=== PATIENT | male | born 1970 | race American Indian/Alaskan Native ===

== ENCOUNTER 2017-04-11 09:30 | Emergency (ER) | payer BC ==
--- NOTE | 2017-04-11 14:22 | Emergency Department Report ---
Upper Extremity - HPI Chief Complaint: Extremity Injury, Upper Stated Complaint: RIGHT SHOULDER ACHE Time Seen by Provider: 04/11/17 13:35 Upper Extremity: Right Shoulder (pain and shoulder joint without any injury.) Occurred When: 4 Days Mechanism: Unsure, Other (she reports that he thinks he slept the wrong way and the shoulder and he started having pain when he woke up 4 days ago) Severity: moderate (4/10. Achy and worse with movement. [id number] pain medication does not help.) Symptoms: Yes Pain with Movement (right shoulder), Yes Limited Range of Movement (right shoulder), No Deformity, No Numbness, No Weakness, No Swelling, No Bruising/Ecchymosis, No Laceration or Abrasion Other History: Patient he reported right shoulder pain that started 4 days ago after he woke up. He denies any trauma to shoulder. He said this had happened in the past and he states he slept the wrong way. He has a history of high blood pressure and said that he was taken off blood pressure medication a while ago because he lost weight but now he gained weight back and he is not sure what his blood pressure was because he does not take it. He said he was on lisinopril 5 mg in the past. He denies any headache, nausea or vomiting, chest pain or shortness of breath. Denies any swelling to legs. Patient reports pain is localized to shoulder joint on the right side. Pain is 4 out of 10 and achy. Worse with movement better with rest. [id number] pain medication does not help. Denies any back pain or neck pain. Patient reports that he had a primary care physician but with primary care physician retired and he would like to be referred to one. ED Review of Systems ROS: Stated complaint: RIGHT SHOULDER ACHE Other details as noted in HPI Comment: All other systems reviewed and negative Constitutional: no symptoms reported Respiratory: no symptoms reported Cardiovascular: denies: chest pain, palpitations, dyspnea on exertion, edema, syncope, paroxysmal nocturnal dyspnea Gastrointestinal: denies: abdominal pain, nausea, vomiting, diarrhea, constipation, melena Genitourinary: denies: urgency, dysuria, frequency, hematuria, discharge Musculoskeletal: arthralgia. denies: back pain, joint swelling, myalgia Skin: denies: rash Neurological: denies: headache, numbness, paresthesias, confusion, abnormal gait , vertigo ED Past Medical Hx - Past Medical History Previous Medical History?: No - Surgical History Past Surgical History?: No - Family History Family history: hypertension - Social History Smoking Status: Never Smoker Substance Use Type: Alcohol - Medications Home Medications: Home Medications Medication Instructions Recorded Confirmed Last Taken Type Lisinopril [Prinivil] 5 mg PO QAM 30 Days #30 tablet 04/11/17 Unknown Rx traMADol [Ultram] 50 mg PO Q6HR PRN 5 Days #20 tablet 04/11/17 Unknown Rx Upper Extremity Exam - Exam General: Vital signs noted. No distress. Alert and acting appropriately. This is a 47-year-old male well-nourished well-developed in no acute distress Head and Torso: No HEENT Abnormality (normal exam), No Neck Tenderness (no C- spine tenderness, no muscular tenderness. Normal exam, negative cervical lymph nodes, full range of motion to neck.), No Chest/Lungs Abnormality (no chest wall tenderness, lungs sounds clear to auscultate bilaterally, no rhonchi wheezes or rales. Normal work of breathing. Cardiovascular: S1, S2. Regular rate and rhythm negative murmur.), No Abdominal Tenderness (nontender to palpate in all quadrants. No rigidity or distention. Normal bowel sounds in all quadrants), No Back Tenderness (no vertebral or paraspinal tenderness, normal inspection and full range of motion) Shoulder Exam: Yes Normal Range of Motion in Shoulder (is with full range of motion to shoulders but he reports that is very painful when he tries to raise his right upper extremity above his head that he has pain in his shoulder joint. ), No Shoulder Tenderness (no effusion), No Clavicle Tenderness, No Shoulder Deformity, No AC Joint Tenderness (or deformity) Arm Exam: No Arm/Humerus Tenderness, No Arm Deformity Elbow: Yes Normal Range of Motion in Elbow, No Elbow Tenderness, No Elbow Deformity Forearm: No Forearm Tenderness, No Forearm Deformity, No Pain with Pronation, No Pain with Supination Wrist: Yes Normal ROM in Wrist, No Wrist Tenderness, No Wrist Deformity, No Snuffbox Tenderness, No Pain with Axial Thumb Compression Hand: Yes Normal ROM in Digit(s), No Hand Tenderness, No Hand Deformity, No Digit Tenderness, No Digit(s) Deformity, No Tendon Dysfunction CMS Exam: Yes Normal Distal Pulses (+ 2 pulses all extremities.), Yes Normal Capillary Refill, Yes Normal Distal Sensation (normal motor movement.), No Broken Skin ED Course Vital Signs 04/11/17 09:56 Temperature 98.5 F Pulse Rate 88 Respiratory 18 Rate Blood Pressure 166/104 O2 Sat by Pulse 99 Oximetry Vital Signs 04/11/17 04/11/17 09:56 15:45 Temperature 98.5 F Pulse Rate 88 Respiratory 18 Rate Blood Pressure 166/104 Blood Pressure 170/100 [Left] O2 Sat by Pulse 99 Oximetry - Reevaluation(s) Reevaluation #1: 04/11/17 15:42 Patient stable, no acute distress. We will start him back on his lisinopril. ED Medical Decision Making - EKG Data -: EKG Interpreted by Me (read by attending Physician) EKG shows normal: sinus rhythm (91 BPM) Rate: normal - EKG Data Interpretation: no acute changes, normal EKG - Medical Decision Making ED course: He reported that he has right shoulder pain for 4 days with similar occurrence in the past. He denies any trauma he said he woke up and thinks that he slept on the wrong side. EKG reveals normal sinus rhythm without any ST abnormality and rate at 91 bpm. Manual blood pressure is better. I discussed the patient that there are no need for him to have an x-ray because he does not have any broken bones from my physical findings. I told him he might have a rotator cuff injury and will need to follow up with orthopedic doctor for MRI. Patient neck and back exam is normal and he is neurologically intact. Patient given Toradol 60 mg IM in emergency room for pain. I discussed with him that I will refer him to primary care physician that he should call and schedule an appointment for initial physical exam and while he waited for his exam E should keep daily log of his blood pressure and take to primary care visit with him. Patient was understanding of treatment plan, discharge instruction in diagnosis and discharged home in stable condition with prescription for Ultram and lisinopril. Critical care attestation.: If time is entered above; I have spent that time in minutes in the direct care of this critically ill patient, excluding procedure time. ED Disposition Clinical Impression: Arthralgia of right shoulder region, Elevated blood pressure reading with diagnosis of hypertension Disposition: - TO HOME OR SELFCARE Is pt being admited?: No Does the pt Need Aspirin: No Condition: Stable Instructions: Hypertension (ED), Arthralgia (ED) Additional Instructions: Please follow up with Primary care Physician as discussed Keep log of your blood pressure and take to appointment Follow up with orthopedist for Shoulder pain Take blood pressure medication as prescribed Please do not drive or operate heavy machinery while taking Ultram as this medication causes drowsiness Prescriptions: Lisinopril [Prinivil] 5 mg PO QAM 30 Days #30 tablet traMADol [Ultram] 50 mg PO Q6HR PRN 5 Days #20 tablet PRN Reason: Pain Referrals: BRIEN WELLER MD [Staff Physician] - 04/13/17 [facility] [Outside] - 04/13/17 PARISA NEVILLE MD [Staff Physician] - 04/13/17 Forms: Accompanied Note, Work/School Release Form(ED)
[2017-04-11] MEDS ORDERED: TORADOL IM ONE (14:23)
[2017-04-11 15:46] VITALS: BP 170/100
== END 2017-04-11 15:58 | disposition home or self-care (01) ==
LOC: ED 09:30
DX: M25.511 Pain in right shoulder (principal); R03.0 Elevated blood-pressure reading, without diagnosis of hypertension
CPT/HCPCS: 93005; 93010; 96372; 99282; J1885